=== PATIENT | male | born 1990 | race Native Hawaiian/Other Pacific Islander ===

== ENCOUNTER 2018-06-04 10:54 | Emergency (ER) | payer OTHER ==
[~2018-06-04] VITALS: Ht 175.3 cm; Wt 111.6 kg
[2018-06-04 11:34] LABS: PLATELET COUNT 272 K/uL (142-355)
[2018-06-04 11:40] LABS: POTASSIUM 4.1 mmol/L (3.6-5.2)
[2018-06-04 12:02] VITALS: BP 128/78; TEMP 99
== END 2018-06-04 12:02 | disposition home or self-care (01) ==
LOC: ED 10:54
DX: K04.7 Periapical abscess without sinus (principal); J32.0 Chronic maxillary sinusitis
CPT/HCPCS: 36415; 80053; 85027; 99283

== ENCOUNTER 2018-06-18 07:29 | Emergency (ER) | payer OTHER ==
[~2018-06-18] VITALS: Ht 175.3 cm; Wt 111.6 kg
[2018-06-18 07:38] VITALS: TEMP 98.8
[2018-06-18 09:00] LABS: PLATELET COUNT 293 K/uL (142-355)
[2018-06-18 09:11] LABS: POTASSIUM 4.8 mmol/L (3.6-5.2)
[2018-06-18 09:50] VITALS: BP 139/84
== END 2018-06-18 10:00 | disposition home or self-care (01) ==
LOC: ED 07:29
DX: G43.909 Migraine, unspecified, not intractable, without status migrainosus (principal)
CPT/HCPCS: 36415; 80053; 81000; 85027; 96374; 96375; 99284; J1100; J1200; J1885; J2405

== ENCOUNTER 2019-07-20 06:39 | Emergency (ER) | payer OTHER ==
[~2019-07-20] VITALS: Ht 175.3 cm; Wt 111.6 kg
[2019-07-20 06:55] VITALS: TEMP 98.1
[2019-07-20 08:18] VITALS: BP 129/68
== END 2019-07-20 08:18 | disposition home or self-care (01) ==
LOC: ED 06:39
DX: L05.91 Pilonidal cyst without abscess (principal)
CPT/HCPCS: 96372; 99282; J1885

== ENCOUNTER 2021-06-28 11:25 | Emergency (ER) | payer OTHER ==
[~2021-06-28] VITALS: Ht 175.3 cm; Wt 89.4 kg
[2021-06-28 11:30] VITALS: TEMP 98
[2021-06-28 13:50] VITALS: BP 148/89
== END 2021-06-28 14:00 | disposition home or self-care (01) ==
LOC: ED 11:25
DX: N50.82 Scrotal pain (principal); K40.20 Bilateral inguinal hernia, without obstruction or gangrene, not specified as recurrent; I86.1 Scrotal varices; X50.9XXA Other and unspecified overexertion or strenuous movements or postures, initial encounter; Y92.89 Other specified places as the place of occurrence of the external cause
CPT/HCPCS: 81000; 99283

== ENCOUNTER 2022-02-28 08:24 | Emergency (ER) | payer OTHER ==
[~2022-02-28] VITALS: Ht 175.3 cm; Wt 99.8 kg
[2022-02-28 08:30] VITALS: TEMP 98.1
[2022-02-28] MEDS ORDERED: CLEOCIN150 MG PO (09:51)
[2022-02-28] MEDS ORDERED: 904272561 PO (09:51)
[2022-02-28 10:05] VITALS: BP 130/84
== END 2022-02-28 10:13 | disposition home or self-care (01) ==
LOC: ED 08:24
PROC: 0H98XZZ Drainage of Buttock Skin, External Approach (ICD-10-PCS; principal; 2022-02-28)
DX: L05.01 Pilonidal cyst with abscess (principal)
CPT/HCPCS: 87070; 87077; 87185; 87186; 87205; 99283; J7040

== ENCOUNTER 2022-10-11 20:47 | Emergency (ER) | payer OTHER ==
[~2022-10-11] VITALS: Ht 175.3 cm; Wt 99.8 kg
[2022-10-11 20:47] VITALS: BP 160/89; TEMP 98.1
[~2022-10-11 20:47] MED LIST: 904272561 PO; CLEOCIN150 MG PO
== END 2022-10-11 21:47 | disposition home or self-care (01) ==
LOC: ED 20:47
PROC: 0HQGXZZ Repair Left Hand Skin, External Approach (ICD-10-PCS; principal; 2022-10-11)
DX: S61.217A Laceration without foreign body of left little finger without damage to nail, initial encounter (principal); X58.XXXA Exposure to other specified factors, initial encounter; Y92.89 Other specified places as the place of occurrence of the external cause
CPT/HCPCS: 99283

== ENCOUNTER 2023-02-20 07:10 | Emergency (ER) | payer OTHER ==
[~2023-02-20] VITALS: Ht 175.3 cm; Wt 105.2 kg
[2023-02-20 07:13] VITALS: BP 159/82; TEMP 98
[2023-02-20] MEDS ORDERED: SERT50TA PO (07:20)
== END 2023-02-20 09:03 | disposition home or self-care (01) ==
LOC: ED 07:10
DX: L05.91 Pilonidal cyst without abscess (principal)
CPT/HCPCS: 96372; 99283; J1885

== ENCOUNTER 2023-03-06 19:15 | Emergency (ER) | payer OTHER ==
[~2023-03-06] VITALS: Ht 175.3 cm; Wt 108.0 kg
[2023-03-06 19:15] VITALS: TEMP 97.8
[~2023-03-06 19:15] MED LIST changes: +SERT50TA PO
[2023-03-07] VITALS: BP 133/74
== END 2023-03-07 00:30 | disposition home or self-care (01) ==
LOC: ED 19:15
DX: S62.102A Fracture of unspecified carpal bone, left wrist, initial encounter for closed fracture (principal); S22.31XA Fracture of one rib, right side, initial encounter for closed fracture; F17.290 Nicotine dependence, other tobacco product, uncomplicated; V86.95XA Unspecified occupant of 3- or 4- wheeled all-terrain vehicle (ATV) injured in nontraffic accident, initial encounter; R51.9 Headache, unspecified
CPT/HCPCS: 96361; 96374; 99284; J1885; J2270; J2405

== ENCOUNTER 2023-06-14 15:13 | Emergency (ER) | payer OTHER ==
[~2023-06-14] VITALS: Ht 175.3 cm; Wt 99.8 kg
[2023-06-14 16:30] VITALS: BP 131/80; TEMP 97.2
== END 2023-06-14 16:30 | disposition home or self-care (01) ==
LOC: ED 15:13
DX: S16.1XXA Strain of muscle, fascia and tendon at neck level, initial encounter (principal); X58.XXXA Exposure to other specified factors, initial encounter; Y93.9 Activity, unspecified; Y92.9 Unspecified place or not applicable; Y99.9 Unspecified external cause status; R51.9 Headache, unspecified
CPT/HCPCS: 99282